=== PATIENT | female | born 1975 | race Caucasian/White ===

== ENCOUNTER → 2018-07-13 | Outpatient (CLI) | payer BC ==
--- NOTE | 2018-07-23 12:09 | MM ---
Reason for exam: screening (asymptomatic). Last mammogram was performed 3 years and 9 months ago. History: Family history of breast cancer in maternal grandmother at age 60. Took hormonal contraceptives for 1 month. MG Screening Mammo w CAD Bilateral CC and MLO view(s) were taken. Prior study comparison: September 27, 2014, bilateral MG screening mammo w CAD. The breast tissue is extremely dense which could obscure a lesion on mammography. No significant changes when compared with prior studies. ASSESSMENT: Benign, BI-RAD 2 RECOMMENDATION: Routine screening mammogram of both breasts in 1 year.
== END | disposition home or self-care (01) ==
LOC: RADMAMWWP 09:32
PROVIDERS: ATTEND Family Medicine
DX: Z12.31 Encounter for screening mammogram for malignant neoplasm of breast (principal)
CPT/HCPCS: 77067

== ENCOUNTER 2019-01-15 19:33 | Inpatient (IN) | payer BC ==
[2019-01-15] MEDS ORDERED: SODIUM CHLORIDE 0.9% 1,000 ML IV ONE (21:25)
[2019-01-15] MEDS ORDERED: NALOXONE 0.4 MG/ML 1 ML VIAL IV PRN (22:20)
[2019-01-15] MEDS ORDERED: HYDROcodone/APAP 5-325MG 1 EACH TAB PO PRN (22:20)
--- NOTE | 2019-01-15 22:20 | ED ---
Animal Bite HPI - General Chief Complaint: Animal Bite Stated Complaint: Dog Bite Time Seen by Provider: 01/15/19 21:25 Source: patient Mode of arrival: ambulatory Limitations: no limitations - History of Present Illness Initial Comments: 43-year-old female presenting for possible dog bite infection. Patient states that last week she was bit by dog on her posterior right calf. Patient states that there was not much puncture penetration she states is more so agrees. She states there is bruising to the area. Patient states the air that was bruised has become red hot with spreading surrounding redness. She was concerned infection presents emergency department for evaluation. Patient denies any fevers. She denies any purulent drainage. Patient denies any general malaise or flulike symptoms. Remaining review of system negative upon arrival patient appears well no signs acute distress. Afebrile, HR elevated. Patient has been on augmentin. - Related Data Home Medications Medication Instructions Recorded Confirmed Levofloxacin [Levaquin] 500 mg PO DAILY 01/15/19 01/15/19 Allergies Allergy/AdvReac Type Severity Reaction Status Date / Time No Known Allergies Allergy Verified 01/15/19 22:28 Review of Systems ROS Statement: Those systems with pertinent positive or pertinent negative responses have been documented in the HPI. ROS Other: All systems not noted in ROS Statement are negative. Past Medical History Past Medical History: No Reported History History of Any Multi-Drug Resistant Organisms: None Reported Past Surgical History: No Surgical Hx Reported Past Psychological History: No Psychological Hx Reported Smoking Status: Current every day smoker Past Alcohol Use History: Unable to Obtain Past Drug Use History: None Reported General Exam - General Exam Comments Initial Comments: General: The patient is awake and alert, in no distress, and does not appear acutely ill. Eye: +3 mm pupils are equal, round and reactive to light, extra-ocular movements are intact. No nystagmus. There is normal conjunctiva bilaterally. No signs of icterus. Ears, nose, mouth and throat: There are moist mucous membranes and no oral lesions. Neck: The neck is supple, there is no tenderness or JVD. Cardiovascular: There is a regular rate and rhythm. No murmur, rub or gallop is appreciated. Respiratory: Lungs are clear to auscultation, respirations are non-labored, breath sounds are equal. No wheezes, stridor, rales, or rhonchi. Musculoskeletal: Normal ROM, no tenderness. Strength 5/5. Sensation intact. DP pulses equal bilaterally 2+. Neurological: A&O x 3. CN II-XII intact, There are no obvious motor or sensory deficits. Coordination appears grossly intact. Speech is normal. Skin: Skin is warm and dry and no rashes. Large raised hematoma fluctuant to the right posterior calf. Surrounding erythema and warmth to palpation. Psychiatric: Cooperative, appropriate mood & affect, normal judgment. Limitations: no limitations Course Vital Signs 01/15/19 01/15/19 01/15/19 20:42 22:31 23:35 Temperature 98.0 F 98.8 F 97.8 F Pulse Rate 110 H 88 74 Respiratory 18 16 16 Rate Blood Pressure 157/99 149/105 138/108 O2 Sat by Pulse 99 100 99 Oximetry Medical Decision Making - Medical Decision Making 43-year-old female presented for dog bite. Patient has been on antibiotics. Patient has large hematoma the right posterior calf. Last patient was performed revealing thick coagulated blood. Cultures obtained. Concern for infected hematoma with surrounding cellulitis. Patient failed outpatient treatment. Patient started of cefoxitin. Blood culture pending. Patient does appear overtly toxic. Patient admitted. Patient agreeable [facility] admission. VS stable. Dr. Smart spoke with admitting provider. Patient transferred in stable condition. - Lab Data Result diagrams: 01/15/19 22:16 01/15/19 22:16 Lab Results 01/15/19 01/15/19 01/15/19 Range/Units 22:16 22:16 22:16 WBC 9.7 (3.8-10.6) k/uL RBC 5.22 (3.80-5.40) m/uL Hgb 14.2 (11.4-16.0) gm/dL Hct 43.4 (34.0-46.0) % MCV 83.2 (80.0-100.0) fL MCH 27.2 (25.0-35.0) pg MCHC 32.7 (31.0-37.0) g/dL RDW 14.4 (11.5-15.5) % Plt Count 277 (150-450) k/uL Neutrophils % 70 % Lymphocytes % 20 % Monocytes % 6 % Eosinophils % 2 % Basophils % 1 % Neutrophils # 6.8 (1.3-7.7) k/uL Lymphocytes # 2.0 (1.0-4.8) k/uL Monocytes # 0.6 (0-1.0) k/uL Eosinophils # 0.2 (0-0.7) k/uL Basophils # 0.1 (0-0.2) k/uL Sodium 141 (137-145) mmol/L Potassium 3.4 L (3.5-5.1) mmol/L Chloride 106 (98-107) mmol/L Carbon Dioxide 23 (22-30) mmol/L Anion Gap 12 mmol/L BUN 9 (7-17) mg/dL Creatinine 0.79 (0.52-1.04) mg/dL Est GFR (CKD-EPI)AfAm >90 (>60 ml/min/1.73 sqM) Est GFR (CKD-EPI)NonAf >90 (>60 ml/min/1.73 sqM) Glucose 88 (74-99) mg/dL Plasma Lactic Acid Cedrick 1.3 (0.7-2.0) mmol/L Calcium 9.5 (8.4-10.2) mg/dL Total Bilirubin 0.4 (0.2-1.3) mg/dL AST 19 (14-36) U/L ALT 9 (9-52) U/L Alkaline Phosphatase 93 (38-126) U/L Total Protein 7.7 (6.3-8.2) g/dL Albumin 4.6 (3.5-5.0) g/dL Disposition Clinical Impression: Failure of outpatient treatment, Animal bite, Traumatic hematoma of right lower leg with infection Disposition: ADMITTED IP TO THIS [facility] Condition: Stable Is patient prescribed a controlled substance at d/c from ED?: No Time of Disposition: 23:56 Decision to Admit Reason: Admit from EC Decision Date: 01/15/19 Decision Time: 23:56
[2019-01-15 22:50] LABS: Basophils # (A) 0.1 k/uL (0-0.2); Basophils % (A) 1 %; Eosinophils # (A) 0.2 k/uL (0-0.7); Eosinophils % (A) 2 %; HCT 43.4 % (34.0-46.0); HGB 14.2 gm/dL (11.4-16.0); Lymphocytes % (A) 20 %; MCH 27.2 pg (25.0-35.0); MCHC 32.7 g/dL (31.0-37.0); MCV 83.2 fL (80.0-100.0); Monocytes # (A) 0.6 k/uL (0-1.0); Monocytes % (A) 6 %; Neutrophils # (A) 6.8 k/uL (1.3-7.7); Neutrophils % (A) 70 %; Platelet Count 277 k/uL (150-450); RBC 5.22 m/uL (3.80-5.40); RDW 14.4 % (11.5-15.5); WBC 9.7 k/uL (3.8-10.6)
[2019-01-15] MEDS: SODIUM CHLORIDE 0.9% 1,000 ML IV SCH (22:52)
[2019-01-15 22:57] LABS: ALT 9 U/L (9-52); AST 19 U/L (14-36); African American GFR (CKD) >90 (>60 ml/min/1.73 sqM); Albumin 4.6 g/dL (3.5-5.0); Alkaline Phosphatase 93 U/L (38-126); Anion Gap 12 mmol/L; Blood Urea Nitrogen 9 mg/dL (7-17); Calcium 9.5 mg/dL (8.4-10.2); Carbon Dioxide 23 mmol/L (22-30); Chloride 106 mmol/L (98-107); Glucose 88 mg/dL (74-99); Potassium 3.4 mmol/L (3.5-5.1); Sodium 141 mmol/L (137-145); Total Bilirubin 0.4 mg/dL (0.2-1.3); Total Protein 7.7 g/dL (6.3-8.2)
[2019-01-15] MEDS ORDERED: POTASSIUM CHLORIDE ER 10 MEQ TAB.ER.PRT PO STA (23:48)
[2019-01-16] MEDS: SODIUM CHLORIDE 0.9% 1,000 ML IV SCH ×2 (08:41→16:03)
--- NOTE | 2019-01-16 19:32 | P.HPIM ---
History of Present Illness H&P Date: 01/16/19 Chief Complaint: Dog bite Jennifer Can is a 43 yo F who presented to [facility] after failed outpatient treatment of a dog bite wound. She states on January 06 or so she sustained a bite to her posterior RLE. She initially was started on Augmentin and took that medication for 9 days. During this time the bite remained mildly swollen and erythematous. She followed up last Tuesday, 01/10 and was switched to doxycycline. Pt states her wound became worse on this medication and grew in size and became more painful. She returned to urgent care and was then switched again to levaquin on 01/13. She reports her wound continued to be painful and the erythema was spreading proximally, so she came in to the hospital. Throughout this episode, she denies fever or chills. She has no history of MRSA, clotting disorder, or immunocompromise. In the ED vitals were stable, WBC 9.7. The wound was drained with a needle in the ED. Review of Systems All systems: negative Constitutional: Denies chills, Denies fever Eyes: denies blurred vision, denies pain Ears, nose, mouth and throat: Denies headache, Denies sore throat Cardiovascular: Denies chest pain, Denies shortness of breath Respiratory: Denies cough Gastrointestinal: Denies abdominal pain, Denies diarrhea, Denies nausea, Denies vomiting Genitourinary: Denies dysuria, Denies hematuria Musculoskeletal: Denies myalgias Musculoskeletal: right: as per HPI (leg pain, tenderness) Integumentary: Denies pruritus, Denies rash Neurological: Denies numbness, Denies weakness Psychiatric: Denies anxiety, Denies depression Endocrine: Denies fatigue, Denies weight change Past Medical History Past Medical History: No Reported History History of Any Multi-Drug Resistant Organisms: None Reported Past Surgical History: No Surgical Hx Reported Additional Past Surgical History / Comment(s): wisdom tooth removal. Past Anesthesia/Blood Transfusion Reactions: No Reported Reaction Past Psychological History: No Psychological Hx Reported Smoking Status: Current every day smoker Past Alcohol Use History: Unable to Obtain Past Drug Use History: None Reported Additional Drug Use History / Comment(s): started smoking at 16. smokes 1/2-1 pack per day. - Past Family History Mother Family Medical History: No Reported History Medications and Allergies Home Medications Medication Instructions Recorded Confirmed Type Levofloxacin [Levaquin] 750 mg PO DAILY 01/15/19 01/16/19 History Allergies Allergy/AdvReac Type Severity Reaction Status Date / Time No Known Allergies Allergy Verified 01/15/19 22:28 Physical Exam Vitals: Vital Signs Temp Pulse Pulse Resp BP BP Pulse Ox 01/16/19 16:49 98.5 F 68 16 118/81 96 01/16/19 11:59 98.5 F 63 16 125/84 98 01/16/19 08:16 98.9 F 73 16 116/76 99 01/16/19 01:09 98.3 F 94 18 155/99 97 01/15/19 23:35 97.8 F 74 16 138/108 99 01/15/19 22:31 98.8 F 88 16 149/105 100 01/15/19 20:42 98.0 F 110 H 18 157/99 99 Intake and Output 01/16/19 01/16/19 01/16/19 06:59 14:59 22:59 Intake Total 580 2 Balance 580 2 Intake: Oral 580 2 Other: # Voids 1 1 Weight 66.814 kg General: well nourished, well developed, NAD. Vitals reviewed Eyes: PERRL, EOMI, conjunctiva normal HENT: normocephalic, mucus membranes moist Neck: supple, no JVD Lungs: normal respiratory effort, no wheezes or rales CV: Regular rate and rhythm, no murmur. Peripheral pulses 2+ Abdomen: soft, nondistended, no organomegaly Lymph: no cervical or axillary LAD Skin: warm and dry. Posterior RLE distal to knee with 2 cm x 3 cm region of fluctuance and erythema extending an additional 1 cm around the wound Neuro: A&Ox3, normal mood and affect Results CBC & Chem 7: 01/15/19 22:16 01/15/19 22:16 Labs: Abnormal Lab Results - Last 24 Hours (Table) 01/15/19 Range/Units 22:16 Potassium 3.4 L (3.5-5.1) mmol/L Microbiology - Last 24 Hours (Table) 01/15/19 23:00 Gram Stain - Preliminary Leg - Right Wound Culture - Preliminary Thrombosis Risk Factor Assmnt - Choose All That Apply Any of the Below Risk Factors Present?: Yes Each Factor Represents 1 point: Age 41-60 years, Obesity (BMI >25) Other Risk Factors: No Other congenital or acquired thrombophilia - If yes, enter type in comment: No Thrombosis Risk Factor Assessment Total Risk Factor Score: 2 Thrombosis Risk Factor Assessment Level: Low Risk Assessment and Plan (1) Traumatic hematoma of right lower leg with infection Current Visit: Yes Status: Acute Code(s): S80.11XA - CONTUSION OF RIGHT LOWER LEG, INITIAL ENCOUNTER; L08.9 - LOCAL INFECTION OF THE SKIN AND SUBCUTANEOUS TISSUE, UNSP SNOMED Code(s): 189636020 (2) Animal bite Current Visit: Yes Status: Acute Code(s): T14.8XXA - OTHER INJURY OF UNSPECIFIED BODY REGION, INITIAL ENCOUNTER SNOMED Code(s): 650365987 (3) Cellulitis of leg without foot, right Current Visit: Yes Status: Acute Code(s): L03.115 - CELLULITIS OF RIGHT LOWER LIMB SNOMED Code(s): 051347713 Plan: 1. Cellulitis/traumatic infected hematoma. Failure of outpatient antibiotics. Drainage attempted in the ED but tract now closed. Will need I+D and to be packed. Will consult surgery to perform procedure inpatient. Continue IV antibiotics at this time. Anticipate discharge once wound draining DVT prophylaxis: SCDs
[2019-01-17] MEDS: SODIUM CHLORIDE 0.9% 1,000 ML IV SCH ×3 (03:45→21:45)
[2019-01-17] MEDS ORDERED: ONDANSETRON 4 MG/2 ML VIAL IVP PRN (08:47)
[2019-01-17] MEDS ORDERED: HYDROmorphone 1 MG/ML 1 ML SYRINGE IVP STA (08:47)
[2019-01-17] MEDS ORDERED: LORazepam 2 MG/ML INJ IV STA (08:47)
[2019-01-17] MEDS ORDERED: LIDOCAINE 1%-EPI 1:100,000 20 ML VIAL SQ STA (08:48)
--- NOTE | 2019-01-17 11:41 | P.GSCN ---
History of Present Illness Consult date: 01/17/19 Reason for Consult: drainage of hematoma from dog bite Requesting physician: Edison August History of present illness: CHIEF COMPLAINT: possible hematoma from dog bite HISTORY OF PRESENT ILLNESS: 43 year old female who suffered a dog bite approxi mately two weeks ago to her right leg. Patient has been on antibiotics outpatient. However, she states over the past few days her calf has become more swollen, red, and tender. Patient denies drainage from area. She reports increased bruising to extremity. Denies fever or chills at home. PAST MEDICAL HISTORY: See list. PAST SURGICAL HISTORY: See list. SOCIAL HISTORY: No illicit drug use. REVIEW OF SYSTEMS: CONSTITUTIONAL: Denies fever or chills. HEENT: Denies blurred vision, vision changes, or eye pain. Denies hemoptysis CARDIOVASCULAR: Denies chest pain or pressure. RESPIRATORY: No shortness of breath. GASTROINTESTINAL: Denies abdominal pain. Denies nausea or vomiting. HEMATOLOGIC: Denies bleeding disorders. GENITOURINARY: Denies any blood in urine. SKIN: Denies pruitis. Denies rash. Reports animal bite 2 weeks ago to right lower extremity is increased in redness and tenderness. PHYSICAL EXAM: VITAL SIGNS: Reviewed. GENERAL: Well-developed in no acute distress. HEENT: No sclera icterus. Extraocular movements grossly intact. Moist buccal mucosa. Head is atraumatic, normocephalic. ABDOMEN: Soft. Nondistended. Nontender. NEUROLOGIC: Alert and oriented. Cranial nerves II through XII grossly intact. SKIN: Right posterior lower extremity with 3cm x 4cm area of erythema and fluctuance. No active drainage. Tenderness upon palpation. Ecchymosis to right lower extremity noted. ASSESSMENT: 1. Traumatic hematoma and cellulitis of right lower extremity s/p dog bite PLAN: 1. Will perform bedside I&D of right lower extremity wound and obtain cultures 2. Continue IV antibiotics Nurse practitioner note has been reviewed by physician. Signing provider agrees with the documented findings, assessment, and plan of care. Past Medical History Past Medical History: No Reported History History of Any Multi-Drug Resistant Organisms: None Reported Past Surgical History: No Surgical Hx Reported Additional Past Surgical History / Comment(s): wisdom tooth removal. Past Anesthesia/Blood Transfusion Reactions: No Reported Reaction Past Psychological History: No Psychological Hx Reported Smoking Status: Current every day smoker Past Alcohol Use History: Unable to Obtain Past Drug Use History: None Reported Additional Drug Use History / Comment(s): started smoking at 16. smokes 1/2-1 pack per day. - Past Family History Mother Family Medical History: No Reported History Medications and Allergies Home Medications Medication Instructions Recorded Confirmed Type Levofloxacin [Levaquin] 750 mg PO DAILY 01/15/19 01/16/19 History Allergies Allergy/AdvReac Type Severity Reaction Status Date / Time No Known Allergies Allergy Verified 01/15/19 22:28 Surgical - Exam Vital Signs Temp Pulse Resp BP Pulse Ox 98.0 F 110 H 18 157/99 99 01/15/19 20:42 01/15/19 20:42 01/15/19 20:42 01/15/19 20:42 01/15/19 20:42 Results - Labs 01/15/19 22:16 01/15/19 22:16 Microbiology - Last 24 Hours (Table) 01/15/19 22:16 Blood Culture - Preliminary Blood No Growth after 24 hours 01/15/19 23:00 Gram Stain - Preliminary Leg - Right Wound Culture - Preliminary
[2019-01-17] MEDS ORDERED: BACITRACIN 500 UNIT/GM OINT 28.4 GM TUBE TOPICAL PRN (12:48)
--- NOTE | 2019-01-17 13:33 | P.OP ---
Date of Procedure: 01/17/19 Preoperative Diagnosis: Right lower leg hematoma Postoperative Diagnosis: Right lower leg hematoma Procedure(s) Performed: Incision and drainage of right lower leg hematoma Anesthesia: local Surgeon: Darien Garcia Pathology: other (Culture) Condition: stable Disposition: PACU Description of Procedure: The patient's placed on the bed in the lateral position. Her right lower leg was prepped and draped usual fashion. The hematoma was anesthetized 1% local Xylocaine. Using a 15 blade skin was incised. Hematoma was evacuated. Sterile dressings applied. Patient tolerated the procedure well.
--- NOTE | 2019-01-17 15:48 | P.DS ---
Providers Date of admission: 01/17/19 09:16 Expected date of discharge: 01/17/19 Attending physician: Edison August MD Consults: 01/16/19 16:05 Consult Physician Routine Consulting Provider: Darien Garcia Consult Reason/Comments: drain of dog bite (hematoma) on R leg Do you want consulting provider notified?: Already Contacted Primary care physician: Mariaelena Reese - Discharge Diagnosis(es) (1) Traumatic hematoma of right lower leg with infection Current Visit: Yes Status: Acute (2) Animal bite Current Visit: Yes Status: Acute (3) Cellulitis of leg without foot, right Current Visit: Yes Status: Acute Hospital Course: Jennifer Can is a 43 yo F who presented to [facility] after failed outpatient treatment of a dog bite wound. She states on January 06 or so she sustained a bite to her posterior RLE. She initially was started on Augmentin and took that medication for 9 days. During this time the bite remained mildly swollen and erythematous. She followed up last Tuesday, 01/10 and was switched to doxycycline. Pt states her wound became worse on this medication and grew in size and became more painful. She returned to urgent care and was then switched again to levaquin on 01/13. She reports her wound continued to be painful and the erythema was spreading proximally, so she came in to the hospital. Throughout this episode, she denies fever or chills. She has no history of MRSA, clotting disorder, or immunocompromise. In the ED vitals were stable, WBC 9.7. The wound was drained with a needle in the ED. The patient was started on IV cefoxitin. Within a few hours the drainage tract made in the ED has closed and her wound was again tense. Surgery was consulted and performed I&D on 01/17. Fluid was sent for culture. Throughout her hospitalization her erythema and pain continued to diminish. She will continue omnicef for 10 days and follow up with PCP within 1 week. Pertinent Studies: Wound culture pending Patient Condition at Discharge: Stable Plan - Discharge Summary Discharge Rx Participant: No New Discharge Prescriptions: New Bacitracin Oint 1 applic TOPICAL TID PRN applic PRN Reason: Wound Healing Cefdinir [Omnicef] 300 mg PO Q12HR #20 capsule Discontinued Levofloxacin [Levaquin] 750 mg PO DAILY Discharge Medication List Bacitracin Oint 1 applic TOPICAL TID PRN applic 01/17/19 [Rx] Cefdinir [Omnicef] 300 mg PO Q12HR #20 capsule 01/17/19 [Rx] Follow up Appointment(s)/Referral(s): Mariaelena Reese DO [Primary Care Provider] - 1-2 days Patient Instructions/Handouts: Animal Bite (ED) Discharge Disposition: HOME SELF-CARE
--- NOTE | 2019-01-17 16:01 | P.PN ---
Subjective Progress Note Date: 01/17/19 Pt seen and evaluated. The erythema around her hematoma is diminished today. Surgery planning on bedside I&D this afternoon. Denies fever, chills Objective - Vital Signs Vital signs: Vital Signs Temp 98.8 F 01/17/19 12:14 Pulse 90 01/17/19 12:14 Resp 20 01/17/19 12:14 BP 134/90 01/17/19 08:42 Pulse Ox 100 01/17/19 12:14 Intake & Output 01/16/19 01/17/19 01/17/19 18:59 06:59 18:59 Intake Total 2 2100 Balance 2 2100 Intake: Intake, IV Titration 1100 Amount Sodium Chloride 0.9% 1, 1000 000 ml @ 100 mls/hr IV . Q10H JOESPH Rx#:[id number] cefOXitin 1 gm In Sodium 100 Chloride 0.9% 50 ml @ 100 mls/hr IVPB Q8H JOSEPH Rx#: [id number] Oral 2 1000 Other: # Voids 1 2 - Exam Gen: alert, oriented, vitals reviewed CV: RRR, no murmur Lungs: clear bilaterally Ext: RLE with 2x2 cm region of fluctuance, erythema diminished from yesterday - Labs CBC & Chem 7: 01/15/19 22:16 01/15/19 22:16 Labs: Microbiology - Last 24 Hours (Table) 01/15/19 22:16 Blood Culture - Preliminary Blood No Growth after 24 hours 01/15/19 23:00 Gram Stain - Preliminary Leg - Right Wound Culture - Preliminary Assessment and Plan (1) Traumatic hematoma of right lower leg with infection Current Visit: Yes Status: Acute Code(s): S80.11XA - CONTUSION OF RIGHT LOWER LEG, INITIAL ENCOUNTER; L08.9 - LOCAL INFECTION OF THE SKIN AND SUBCUTANEOUS TISSUE, UNSP SNOMED Code(s): 974038452 (2) Animal bite Current Visit: Yes Status: Acute Code(s): T14.8XXA - OTHER INJURY OF UNSPECIFIED BODY REGION, INITIAL ENCOUNTER SNOMED Code(s): 016518937 (3) Cellulitis of leg without foot, right Current Visit: Yes Status: Acute Code(s): L03.115 - CELLULITIS OF RIGHT LOWER LIMB SNOMED Code(s): 849322243 Plan: 1. Cellulitis/traumatic infected hematoma. Failure of outpatient antibiotics. Continue IV abx, surgery to perform bedside I&D today. Discharge later today or tomorrow pending surgery recs DVT prophylaxis: SCDs
[2019-01-17 20:32] VITALS: RESP 16
[2019-01-18 08:51] VITALS: BP 144/91; PULSE 69; TEMP 98.3
[2019-01-18] MEDS: SODIUM CHLORIDE 0.9% 1,000 ML IV SCH (09:32)
== END 2019-01-18 10:49 | disposition home or self-care (01) | DRG 581 ==
LOC: EC 19:33 → 6PED 22:21 → OBSVTOIN 01-17 09:16
PROVIDERS: ADMIT Family Medicine; ATTEND Family Medicine
PROC: 0J9N0ZZ Drainage of Right Lower Leg Subcutaneous Tissue and Fascia, Open Approach (ICD-10-PCS; principal; 2019-01-17)
DX: L03.115 Cellulitis of right lower limb (principal); S80.11XA Contusion of right lower leg, initial encounter; S81.851S Open bite, right lower leg, sequela; W54.0XXS Bitten by dog, sequela; F17.210 Nicotine dependence, cigarettes, uncomplicated; Z79.2 Long term (current) use of antibiotics
CPT/HCPCS: 36415; 80053; 83605; 85025; 87040; 87070; 87205; 96365; 99284

== ENCOUNTER → 2019-02-20 | Outpatient (CLI) | payer BC ==
--- NOTE | 2019-02-20 09:02 | XR ---
EXAMINATION TYPE: XR abdomen 1V DATE OF EXAM: 02/20/2019 8:58 AM CLINICAL HISTORY: IUD placement TECHNIQUE: Single supine KUB image of the abdomen is obtained. COMPARISON: None. FINDINGS: Scattered gas is seen in nondilated small bowel loops. Gas and fecal material is seen in no ndilated colon. No gross evidence of pneumoperitoneum although this finding is limited on supine radi ograph. The lung bases are clear contour deformity of the left pubic bone could be from prior fractur e or complete. Otherwise osseous structures appear intact. Mild degenerative changes of the femoral a cetabular joint and lumbosacral junction. IMPRESSION: No radiopaque intrauterine device is seen in the abdomen or pelvis.
== END | disposition home or self-care (01) ==
LOC: RADXRMAIN 08:40
PROVIDERS: ATTEND Obstetrics & Gynecology
DX: Z30.431 Encounter for routine checking of intrauterine contraceptive device (principal)
CPT/HCPCS: 74018

== ENCOUNTER → 2019-03-05 | Outpatient (CLI) | payer BC ==
[2019-03-05 11:34] LABS: Basophils % (A) 1 %; Eosinophils # (A) 0.1 k/uL (0-0.7); Eosinophils % (A) 3 %; Hypochromasia Marked; Lymphocytes # (A) 0.7 k/uL (1.0-4.8); Lymphocytes % (A) 16 %; MCH 26.2 pg (25.0-35.0); MCHC 32.1 g/dL (31.0-37.0); MCV 81.5 fL (80.0-100.0); Mean Platelet Volume 6.9; Monocytes # (A) 0.2 k/uL (0-1.0); Monocytes % (A) 5 %; Neutrophils # (A) 3.3 k/uL (1.3-7.7); Neutrophils % (A) 74 %; Platelet Count 250 k/uL (150-450); Poikilocytosis Moderate; RBC 3.92 m/uL (3.80-5.40); RDW 13.4 % (11.5-15.5); WBC 4.5 k/uL (3.8-10.6)
[2019-03-05 11:38] LABS: HGB 10.3 gm/dL (11.4-16.0)
== END | disposition home or self-care (01) ==
LOC: LABPAT 10:27
PROVIDERS: ATTEND Obstetrics & Gynecology
DX: Z01.812 Encounter for preprocedural laboratory examination (principal); N92.1 Excessive and frequent menstruation with irregular cycle
CPT/HCPCS: 36415; 85025

== ENCOUNTER 2019-03-19 07:34 | Day surgery (SDC) | payer BC ==
[2019-03-13 13:12] VITALS: BMI 25.7
[~2019-03-19 07:34] MED LIST: DEXAMETHASONE SOD PHOSPHATE 10 MG/ML 1 ML VIAL IV ONE; HYDROmorphone 0.5 MG/0.5 ML SYRINGE IVP PRN; LACTATED RINGERS 1,000 ML IV SCH; MIDAZOLAM 2 MG/2 ML VIAL IV PRN; ONDANSETRON 4 MG/2 ML VIAL IVP ONE; Pre Op ABX Message 1 EACH MISC MISCELLANE ONE; SCOPOLAMINE 1.5MG/72HR PATCH TRANSDERM ONE
[2019-03-19] MEDS ORDERED: fentaNYL (PF) 50 MCG/ML 2 ML AMP ONE (08:59)
[2019-03-19] MEDS ORDERED: ROCURONIUM BROMIDE 10 MG/ML 10 ML VIAL IV ONE (08:59)
[2019-03-19] MEDS ORDERED: GLYCOPYRROLATE 0.2 MG/ML 2 ML VIAL ONE (08:59)
[2019-03-19] MEDS ORDERED: NEOSTIGMINE 1 MG/ML 10 ML VIAL ONE (08:59)
[2019-03-19] MEDS ORDERED: PROPOFOL 10 MG/ML 20 ML VIAL IV ONE (08:59)
[2019-03-19] MEDS ORDERED: SUCCINYLCHOLINE CHLORIDE 100 MG/5 ML SYR IV ONE (08:59)
[2019-03-19] MEDS ORDERED: MIDAZOLAM 2 MG/2 ML VIAL ONE (08:59)
[2019-03-19] MEDS ORDERED: LIDOCAINE 1% INJ 10MG/ML (20 ML MDV) ONE (08:59)
[2019-03-19] MEDS ORDERED: ePHEDrine SULFATE/0.9% NACL/PF 50 MG/5 ML SYRINGE IV ONE (08:59)
[2019-03-19] MEDS ORDERED: KETOROLAC 30 MG/ML 1 ML VIAL ONE (08:59)
[2019-03-19] MEDS ORDERED: IBUPROFEN 600 MG TAB PO PRN (09:15)
[2019-03-19] MEDS ORDERED: METOCLOPRAMIDE 5 MG/ML 2 ML VIAL IVP PRN (09:15)
[2019-03-19] MEDS ORDERED: diphenhydrAMINE 50 MG/ML 1 ML VIAL IVP PRN (09:15)
[2019-03-19] MEDS ORDERED: Acetaminophen-Codeine 300-30mg TAB PO PRN ×2 (09:15)
[2019-03-19] MEDS ORDERED: ONDANSETRON 4 MG/2 ML VIAL IVP PRN (09:15)
[2019-03-19] MEDS ORDERED: KETOROLAC 30 MG/ML 1 ML VIAL IVP PRN (09:15)
[2019-03-19] MEDS ORDERED: SIMETHICONE 80 MG CHEWABLE PO PRN (09:15)
[2019-03-19] MEDS ORDERED: BUPIVACAINE (PF) 0.5% 30 ML VIAL SQ ONE (09:39)
--- NOTE | 2019-03-19 10:13 | P.OP ---
Date of Procedure: 03/19/19 Preoperative Diagnosis: #1. Menometrorrhagia/dysfunctional uterine bleeding #2. Undesired fertility #3. Fibroid uterus Postoperative Diagnosis: Same Procedure(s) Performed: #1. Laparoscopic bilateral tubal occlusion with Filshie clips #2. Diagnostic h ysteroscopy #3. NovaSure endometrial ablation Anesthesia: IMMANUEL Surgeon: Fran Rivas Estimated Blood Loss (ml): 5 IV fluids (ml): 700 Urine output (ml): 5 Pathology: none sent Condition: stable Disposition: PACU Operative Findings: Preoperative pelvic examination demonstrated a roughly 7 to possibly 8 week size irregular uterus consistent with the diagnosis of fibroids which was known prior. Intraoperatively, the uterus was bulky from the laparoscopic perspective. The bilateral tubes and ovaries appeared normal although the left ovary did have a roughly 2-3 cm likely follicular cyst present. The upper abdomen was entirely normal. The appendix was not visualized. Using the hysteroscope, the uterine cavity appeared to be slightly irregular in shape. The bilateral tubal areas were seen though not clearly visualized. There was a moderate amount of shaggy tissue present. The first NovaSure tool had settings of 6.5 cm in length, 4.8 cm in width for a total power of 172 W. The initial run time was for approximate 42 seconds after which the base unit read vacuum failure. The tool was re-enabled and the run restarted on 2 separate occasions for a total perhaps 8-10 seconds after which time the tool was deemed to have failed. It was discarded and replaced with a new tool which was placed into the uterine cavity with the settings exactly the same period the cavity check was attempted and passed without difficulty. The tool was enabled and the run was started. After total run time of 50 seconds, the base unit read "procedure complete." Description of Procedure: The patient was prepped and draped in usual fashion after general endotracheal anesthesia was established by the anesthesiologist. A speculum was placed and the anterior lip of the cervix grasped with single-tooth tenaculum allowing placement of an acorn cannula without difficulty. The bladder was draining approximate 5 mL of clear jacques urine. Attention was turned to the abdomen where a 5 mm incision was made in the vertical fold of the umbilicus allowing insertion of a 5 mm optical trocar under direct visualization without difficulty. Following placement there was noted to be some subcutaneous crepitus or preperitoneal gas. The uterus was relatively bulky as noted above and the fecal to manipulate. The bilateral tubes and ovaries appeared normal though the left ovary did have a roughly 2-3 cm simple-appearing cyst present likely consistent with a follicle. A site was selected in the midline approximately 4-57 m above the pubic symphysis where an 8 mm incision was made in the transverse plane allowing insertion of an 8 mm optical trocar under direct vision station without difficulty. After examination using the blunt probe, the probe was replaced with a Filshie clip applicator was utilized to place a clip firmly across the isthmic portion of each tube approximately 2-3 cm from the cornu on each side. The remainder of the abdomen was then explored with the findings as noted above. There were no abnormalities or pathology noted. The pneumoperitoneum was then evacuated through the 2 trochars and the trochars removed. The skin was reapproximated with interrupted subcuticular stitches of 4-0 Vicryl followed by half-inch Steri-Strips placed with Mastisol. The incisions were injected with a total of 10 mL of half percent Marcaine without epinephrine divided equally between the 2 incisions. Attention was returned to the vagina where the acorn cannula was removed and the uterus sounded to approximately 11 cm. The cervix was approximate 4 cm in length. Serial dilation was carried out to admit the diagnostic hysteroscope which was placed to the fundus. The findings are as noted above with some generalized shaggy tissue throughout and the suggestion of some irregularity of the cavity consistent with possible fibroids. The bilateral tubal regions were seen though the ostia were not clearly visualized. After ascertaining that there is no significant pathology, the scope was removed and the NovaSure tool placed to the fundus where was opened with settings of a length of 6.5 cm, a width of 4.8 cm for a total power of 172 W. The cavity check was attempted and passed without difficulty. The tool was enabled and the run was started. After total run time of 42 seconds, the tool failed and the base unit read vacuum failure. The tool was really unable to 2 separate occasions for a total continued run time of perhaps 8-10 seconds at which time the 2 was deemed failure. Was closed, removed, and discarded in favor of a new tool. This too was placed in the fundus and opened with the settings as previous. The cavity check was passed without difficulty. The tool was enabled and the run was started. After total run time of 50 seconds, the base unit read "procedure complete." The 2 was removed and discarded and the diagnostic scope placed into the in vitro cavity. The result appeared excellent. All instrumentation was removed. The patient is an unlikely candidate for vaginal hysterectomy given the bulk of the uterus though there is moderate descensus present. Estimated blood loss for the entire case was approximate 5 mL or less. There are no compilations. All sponge, instrument, needle counts were correct. The patient tolerated the procedure well and proceeded to the recovery room in stable condition.
[2019-03-19 10:37] VITALS: TEMP 97.4
[2019-03-19] MEDS ORDERED: LACTATED RINGERS 1,000 ML IV ONE (10:51)
[2019-03-19 11:34] VITALS: PULSE 50
[2019-03-19 12:23] VITALS: BP 128/66; RESP 14
== END 2019-03-19 12:30 | disposition home or self-care (01) ==
LOC: OR 07:34
PROVIDERS: ATTEND Obstetrics & Gynecology
DX: N92.1 Excessive and frequent menstruation with irregular cycle (principal); Z30.2 Encounter for sterilization; D25.9 Leiomyoma of uterus, unspecified; F17.200 Nicotine dependence, unspecified, uncomplicated
CPT/HCPCS: 81025; 58671; 58563; J2250; J1100; J2710; J2405; J2001; J3010; J1885; J0330; J2704

== ENCOUNTER → 2024-10-05 | Outpatient (CLI) | payer BC ==
--- NOTE | 2024-10-08 07:31 | MM ---
Reason for Exam: Screening (asymptomatic). Last mammogram was performed 6 year(s) and 2 month(s) ago. Patient History: Menarche at age 10. First Full-Term at age 18. Perimenopausal. Hormonal Contraceptives for 1 month. Maternal grandmother had breast cancer, age 60. Risk Values: Raissa 5 year model risk: 0.9%. NCI Lifetime model risk: 8.0%. Prior Study Comparison: 09/27/2014 Bilateral Screening Mammogram, [facility]. 07/13/2018 Bilateral Screening Mammogram, [facility]. Tissue Density: The breasts are heterogeneously dense, which may obscure small masses. Findings: Analyzed By CAD. There is no suspicious group of microcalcifications or new suspicious mass in either breast. Overall Assessment: Benign, BI-RAD 2 Management: Screening Mammogram of both breasts in 1 year. . Patient should continue monthly self-breast exams. A clinical breast exam by your physician is recommended on an annual basis. This exam should not preclude additional follow-up of suspicious palpable abnormalities. Note on Raissa scores and lifetime risk: 1. A Raissa score greater than 3% is considered moderate risk. If this is the case, consider specialist referral to assess eligibility for a risk reducing agent. 2. If overall lifetime risk for the development of breast cancer is 20% or higher, the patient may qualify for future screening with alternating mammogram and breast MRI. [facility], , 10/08/2024 7:27 AM. Electronically signed and approved by: Talib Leigh M.D. [facility]iolog[facility]
== END | disposition home or self-care (01) ==
LOC: RADMAMWWP 16:23
PROVIDERS: ATTEND Family Medicine
DX: Z12.31 Encounter for screening mammogram for malignant neoplasm of breast (principal); R92.333 Mammographic heterogeneous density, bilateral breasts; Z80.3 Family history of malignant neoplasm of breast; Z92.0 Personal history of contraception
CPT/HCPCS: 77067